=== PATIENT | male | born 1990 | race Caucasian/White ===

== ENCOUNTER 2018-11-24 09:00 | Outpatient (CLI) | payer OTHER | END 2018-11-24 09:05 | disposition home or self-care (01) | LOC: LAB SALUS 09:00 → LAB 15:06 | DX: E66.3 Overweight (principal); Z13.220 Encounter for screening for lipoid disorders; Z11.59 Encounter for screening for other viral diseases; Z13.1 Encounter for screening for diabetes mellitus; Z11.4 Encounter for screening for human immunodeficiency virus [HIV]; Z72.51 High risk heterosexual behavior; Z11.3 Encounter for screening for infections with a predominantly sexual mode of transmission; Z12.11 Encounter for screening for malignant neoplasm of colon; Z83.3 Family history of diabetes mellitus; L81.8 Other specified disorders of pigmentation ==

== ENCOUNTER 2018-11-24 10:08 | Outpatient (CLI) | payer OTHER | END 2018-11-24 10:17 | disposition home or self-care (01) | LOC: SONOGRAMA 10:08 | DX: R10.84 Generalized abdominal pain (principal) ==

== ENCOUNTER → 2018-12-15 | Emergency (ER) | payer OTHER | END | disposition left against medical advice (07) | LOC: ER 13:23 | DX: Z53.20 Procedure and treatment not carried out because of patient's decision for unspecified reasons (principal) ==

== ENCOUNTER 2018-12-17 13:30 | Outpatient (CLI) | payer OTHER | END 2018-12-17 13:38 | disposition home or self-care (01) | LOC: RAD 13:30 | DX: N20.0 Calculus of kidney (principal) ==